=== PATIENT | male | born 2000 | race Two or more races ===

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

== ENCOUNTER 2024-05-03 19:27 | Emergency (ER) | payer OTHER ==
[~2024-05-03] VITALS: Ht 180.3 cm; Wt 90.7 kg
[~2024-05-03 19:27] MED LIST: MILLIPRED5 MG; PROAIR HFA8.5 GM
[2024-05-03 21:39] LABS: HEMATOCRIT 45.9 % (39.0-48.0); HEMOGLOBIN 16.1 g/dL (13-16.00); MEAN CORPUSCULAR HEMOGLOBIN 31.6 pg (27.00-32.0); MEAN CORPUSCULAR HGB CONC 35.1 g/dl (32.0-36.0); PLATELET COUNT 197 K/uL (150-450)
[2024-05-03] MEDS ORDERED: ZITHROMAX TRI-500 MG PO (22:34)
== END 2024-05-03 23:20 | disposition home or self-care (01) ==
LOC: ER 19:29
PROVIDERS: Preventive Medicine Public Health & General Preventive Medicine
DX: J06.9 Acute upper respiratory infection, unspecified (principal); J45.909 Unspecified asthma, uncomplicated; Z20.822 Contact with and (suspected) exposure to COVID-19